=== PATIENT | female | born 1940 | race Caucasian/White ===

== ENCOUNTER 2016-03-25 09:40 | Inpatient (IN) | payer MEDICARE, OTHER ==
[~2016-03-25] VITALS: Ht 162.6 cm; Wt 65.8 kg
[~2016-03-25 09:40] MED LIST: BAYER CHEWABLE81 MG; EFFIENT10 MG PO; FISH OIL 1,0001 CA1 PO; IMDUR30 MG PO; JANUMET 50-5001 TAB PO; LIPITOR40 MG PO; NEURONTIN 300300 MG PO; NITROSTAT0.4 MG SL; PLAVIX75 MG PO; PRINIVIL20 MG PO; SYNTHROID25 MCG PO; TOPROL XL25 MG PO; ULTRAM50 MG PO
[2016-03-25 11:36] LABS: BASOPHILS 0.2 % (0.0-2.0); EOSINOPHILS 3.1 % (0-7); HEMATOCRIT 37.5 % (36.0-48.0); HEMOGLOBIN 12.1 g/dL (12-16); IMMATURE GRANULOCYTES 0.6 % (0-5); MCH 29.7 pg (26.0-34.0); MCHC 32.3 g/dL (31.0-37.0); MCV 91.9 fL (80.0-100.0); MEAN PLATELET VOLUME 9.5 fL (7.4-10.4); MONOCYTES 4.1 % (2-11); PLATELET COUNT 199 10x3/uL (130-400); RBC 4.08 10x6/uL (4.00-5.40); RDW 13.9 % (11.5-14.5); WBC 10.6 10x3/uL (4.8-10.8)
[2016-03-25 11:53] LABS: ALBUMIN 3.6 g/dL (3.4-5.0); ANION GAP 11.1 mmol/L (8-16); BILIRUBIN - TOTAL 0.3 mg/dL (0.2-1.3); CARBON DIOXIDE 29.6 mmol/L (21.0-32.0); CREATININE - SERUM 1.3 mg/dL (0.6-1.3); POTASSIUM - SERUM 4.7 mmol/L (3.5-5.1); PROTEIN - SERUM 6.3 g/dL (6.4-8.2)
[2016-03-25 11:56] LABS: INR 0.89 (0.85-1.17); PROTIME 11.9 SECONDS (11.6-15.0)
[2016-03-25 12:19] LABS: APPEARANCE SLT CLOUDY (CLEAR); BILIRUBIN NEGATIVE (NEGATIVE); COLOR YELLOW (YELLOW); GLUCOSE 250 mg/dL (NEGATIVE); KETONE NEGATIVE (NEGATIVE); LEUKOCYTE ESTERASE TRACE (NEGATIVE); NITRITE POSITIVE (NEGATIVE); PROTEIN NEGATIVE (NEGATIVE); SPECIFIC GRAVITY 1.015 (1.005-1.020); UROBILINOGEN NORMAL (NORMAL)
[2016-03-25 12:20] LABS: BACTERIA MANY /hpf (NONE SEEN); EPITHELIAL CELLS 0-5 /hpf (0-5); MUCUS <1+ /lpf (NONE SEEN); WHITE CELLS - URINE 0-5 /hpf (0-5)
--- NOTE | 2016-03-25 14:22 | NUR ---
1400- RECEIVED PT FROM ER VIA BED BY KARINA DURAN. STATED PT JUST HAD ZOFRAN IN ER. YUNG CATHETER SEEN WITH YELLOW URINE. ON ROOM AIR. IV CATHETER SEEN TO RIGHT FOREARM THAT IS SALINE LOCKED AND PATENT. IV FLUIDS STARTED ORDERED (NS RUNNING AT 75CC).
[2016-03-25] MEDS ORDERED: VITAMIN D31000 UNI2 PO (14:34)
[2016-03-25] MEDS ORDERED: FISH OIL 1,0001 CA1 PO (14:34)
[2016-03-25 14:37] VITALS: BP 112/51
--- NOTE | 2016-03-25 15:10 | NUR ---
PTS QUICKSTART DONE, ADMISSION ASSESSMENT COMPLETED, AND ASSESSMENT HISTORY COMPLETED. PTS HOME MEDICAION LIST UPDATED WITH PHARMACY INFORMATION PER PT STATEMENTS. NO NEED AT CURRENT TIME WILL AWAIT NEW ORDERS.
--- NOTE | 2016-03-25 18:04 | NUR ---
SURGERY JUST CALLED TO INFORM ME THAT PT WILL BE GOING IN FOR SURGERY AT AROUND [phone] IN THE AM AND TO PASS THIS ON IN REPORT TO ASSESSMENT CLINICIAN NURSE. INFORMED SURGERY THAT PT STATED THAT THE LAST TIME SHE HAD SURGERY SHE VOMITED ALOT AFTERWARDS. FAMILY MEMBERS ARE CURRENTLY AT BEDSIDE. PT IS SITTING UP IN BED RESTING. NO NEED AT CURRENT TIME. WILL CONTINUE TO MONITOR.
[2016-03-25 19:00] VITALS: BP 121/66
[2016-03-26] VITALS (10 sets, daily range): BP systolic 114–163; BP diastolic 57–82
--- NOTE | 2016-03-26 04:06 | NUR ---
ASSESSED AT THE BEGINNING OF THE SHIFT. PT IS ALERT AND ORIENTED, ABLE TO VERBALIZE NEEDS. SHE IS HAVING ALOT OF PAIN IN A FRACTURED HIP AND WE HAVE BEEN GIVING HER PAIN AND NAUSEA MEDS ORDERED. AT MIDNIGHT SHE BECAME NPO AND WE SATYA HAVE HER READY FOR SURGERY IN EARLY AM. THE BED IS LOW, RAILS UP X'S 2 WITH THE CALL LIGHT AT HAND.
[2016-03-26 06:04] LABS: BASOPHILS 0.1 % (0.0-2.0); EOSINOPHILS 0.2 % (0-7); HEMATOCRIT 35.9 % (36.0-48.0); HEMOGLOBIN 11.5 g/dL (12-16); IMMATURE GRANULOCYTES 0.6 % (0-5); MCH 29.3 pg (26.0-34.0); MCV 91.6 fL (80.0-100.0); MEAN PLATELET VOLUME 9.7 fL (7.4-10.4); MONOCYTES 4.8 % (2-11); NEUTROPHILS 76.3 % (40-80); PLATELET COUNT 190 10x3/uL (130-400); RBC 3.92 10x6/uL (4.00-5.40); RDW 14.1 % (11.5-14.5); WBC 8.3 10x3/uL (4.8-10.8)
[2016-03-26 06:27] LABS: ANION GAP 10.4 mmol/L (8-16); CALCIUM 8.7 mg/dL (8.5-10.1); CARBON DIOXIDE 29.9 mmol/L (21.0-32.0); CREATININE - SERUM 1.2 mg/dL (0.6-1.3); POTASSIUM - SERUM 4.3 mmol/L (3.5-5.1)
--- NOTE | 2016-03-26 07:36 | NUR ---
PT PREOPED AND TAKEN BACK TO HOLDING AREA. DR. GÓMEZ DISCUSSING PROCEDURE WITH FAMILY OUTSIDE OF ROOM.
--- NOTE | 2016-03-26 09:36 | NUR ---
PT REC'D BACK TO ROOM FROM SURGERY. AAOX4. RATING CURRENT PAIN IN R KNEE 09/29. O2 SAT W/O 2L O2 ON 84, BUT CORRECT TO 98 WITH O2 ON. EXPLAINED TO PT THAT WHEN O2 IS THAT LOW WE CANNOT GIVE PAIN MEDICATION. WILL REASSESS. ICE TO R HIP. SCD'S ON. BED LOW, CALL LIGHT IN REACH, VSS AT THIS TIME. WILL CONTINUE TO MONITOR CLOSELY.
--- NOTE | 2016-03-26 12:24 | NUR ---
PATIENT ALERT IN BED WITH FAMILY PRESENT. NO SIGNS OF DISTRESS NOTED. SIDE RAILS UP X 2. BED IN LOW POSITION. CALL LIGHT IN REACH.
--- NOTE | 2016-03-26 14:24 | NUR ---
PT RESTING IN BED WITH EYES CLOSED. NO SIGNS OF DISTRESS. RESP EVEN AND UNLABORED. DRESSING TO R HIP CDI. ICE TO AFFECTED AREA. BED LOW, CALL LIGHT IN REACH, WILL CPOC.
[2016-03-27] VITALS: BP 118/61
[2016-03-27 04:00] VITALS: BP 117/64
[2016-03-27 05:08] LABS: BASOPHILS 0.1 % (0.0-2.0); HEMATOCRIT 32.8 % (36.0-48.0); HEMOGLOBIN 10.3 g/dL (12-16); IMMATURE GRANULOCYTES 0.3 % (0-5); LYMPHOCYTES 21.9 % (15-50); MCH 29.4 pg (26.0-34.0); MCHC 31.4 g/dL (31.0-37.0); MCV 93.7 fL (80.0-100.0); MEAN PLATELET VOLUME 9.5 fL (7.4-10.4); NEUTROPHILS 68.7 % (40-80); PLATELET COUNT 142 10x3/uL (130-400); RDW 14.6 % (11.5-14.5); WBC 6.9 10x3/uL (4.8-10.8)
[2016-03-27 05:29] LABS: ANION GAP 12.5 mmol/L (8-16); CALCIUM 8.2 mg/dL (8.5-10.1); CARBON DIOXIDE 26.7 mmol/L (21.0-32.0); CREATININE - SERUM 1.2 mg/dL (0.6-1.3); POTASSIUM - SERUM 4.2 mmol/L (3.5-5.1)
--- NOTE | 2016-03-27 07:00 | NUR ---
PT REC'D FROM KARINA HARDIN. RESTING IN BED WITH FAMILY IN ROOM. RATING CURRENT PAIN IN R HIP 04/01. DRESSING TO R HIP CDI. ICE APPLIED TO R HIP. YUNG CATHETER DRAINING CLEAR YELLOW URINE TO GRAVITY. BED LOW, CALL LIGHT IN REACH, DENIES NEEDS. CPOC.
--- NOTE | 2016-03-27 08:02 | NUR ---
PATIENT IN [place] POSITION RESTING QUIETLY. NO SIGNS OF DISTRESS NOTED. AVI NURSE AID AT BEDSIDE. SIDE RAILS UP X2. BED IN LOW POSITION. CALL LIGHT IN REACH.
--- NOTE | 2016-03-27 08:30 | NUR ---
MORNING MEDS PASSED AT THIS TIME. FAMILY AT BEDSIDE. NO COMPLAINTS. BED LOW, CALL LIGHT IN REACH, DENIES NEEDS.
[2016-03-27 09:00] VITALS: BP 106/53
--- NOTE | 2016-03-27 11:30 | NUR ---
FSBS 157. 2 UNITS OF INSULIN ADMINISTERED PER SS. BED LOW, CALL LIGHT IN REACH, DENIES NEEDS.
[2016-03-27 12:45] VITALS: BP 102/58
[2016-03-27 16:28] VITALS: BP 99/45
--- NOTE | 2016-03-27 16:30 | NUR ---
FSBS 171. 2 UNITS OF INSULIN ADMINISTERED PER SS. BED LOW, CALL LIGHT IN REACH, WILL CPOC.
[2016-03-27 19:00] VITALS: BP 130/73
--- NOTE | 2016-03-27 19:20 | NUR ---
REPORT GIVEN TO KARINA KHAN.
[2016-03-28] VITALS: BP 103/46
--- NOTE | 2016-03-28 02:30 | NUR ---
PT. IN BED WITH HOB UP FOR COMFORT WATCHING TV AND TRYING TO GO TO SLEEP. PT. HAS NO VOICED NEEDS AT THIS TIME AND HAS HER CALL LIGHT WITHIN REACH.
[2016-03-28 04:00] VITALS: BP 94/48
--- NOTE | 2016-03-28 05:33 | NUR ---
PT. IN BED WITH HOB UP FOR COMFORT WITH EYES CLOSED AND RESP. EVEN. IV INFUSING INTO RT. FOREARM OF NS @ 75CC/HR. CALL LIGHT WITHIN REACH.
[2016-03-28 05:44] LABS: BASOPHILS 0.5 % (0.0-2.0); EOSINOPHILS 6.4 % (0-7); IMMATURE GRANULOCYTES 0.6 % (0-5); LYMPHOCYTES 27.6 % (15-50); MCH 29.4 pg (26.0-34.0); MCV 91.8 fL (80.0-100.0); MEAN PLATELET VOLUME 9.6 fL (7.4-10.4); MONOCYTES 7.6 % (2-11); NEUTROPHILS 57.3 % (40-80); PLATELET COUNT 130 10x3/uL (130-400); RDW 14.3 % (11.5-14.5); WBC 6.4 10x3/uL (4.8-10.8)
[2016-03-28 05:53] LABS: HEMATOCRIT 25.6 % (36.0-48.0); HEMOGLOBIN 8.2 g/dL (12-16); RBC 2.79 10x6/uL (4.00-5.40)
[2016-03-28 05:56] LABS: ANION GAP 10.7 mmol/L (8-16); CALCIUM 7.9 mg/dL (8.5-10.1); CARBON DIOXIDE 25.2 mmol/L (21.0-32.0); CREATININE - SERUM 1.1 mg/dL (0.6-1.3); POTASSIUM - SERUM 3.9 mmol/L (3.5-5.1)
[2016-03-28 08:59] VITALS: BP 143/68
--- NOTE | 2016-03-28 09:00 | NUR ---
REPORT RECIEVED ASSUMED CARE. PATIENT IN BED WITH IV INTACT. CALL LIGHT WITHIN REACH.
--- NOTE | 2016-03-28 10:16 | NUR ---
Rehab Prescreening Consult recieved and the chart has been reviewed. She is a good rehab candidate. She will be accepted on POD#3 is she and the physician feel she is medically stable for discharge to rehab. Anamika Wills RN Clinical Liaison, Rehab
--- NOTE | 2016-03-28 11:00 | NUR ---
PATIENT SITTING UP IN CHAIR WITH IV INTACT. FAMILY AT BEDSIDE. CALL LIGHT WITHIN REACH.
[2016-03-28 12:32] VITALS: BP 130/57
[2016-03-28 12:50] VITALS: Ht 162.6 cm; Wt 65.8 kg
[2016-03-28 16:08] VITALS: BP 113/47
--- NOTE | 2016-03-28 16:17 | NUR ---
Patient Name: YUDY LAWRENCE Admission Status: ER Accout number: [id number] Admission Date: 03-25-2016 : 1941 Admission Diagnosis: Attending: SHASHANK Current LOS: 3 Anticipated DC Date: 03-29-2016 Planned Disposition: Inpatient Rehab Primary Insurance: MEDICARE A & B Discharge Planning Comments: CM MET WITH PATIENT REGARDING D/C NEEDS AND PLANS. PATIENT STATED SHE LIVES ALONE WITH HER DOG (CARRIE). PATIENT HAS NO STEPS OR STAIRS AT HER HOME. PATIENT STATED SHE IS INDEPENDENT WITH HER CARE AND HAS NO DME AT HOME. PATIENTS PCP IS DR. PARKER AND PHARMACY IS [facility] ON [address]. PATIENT WILL GO TO IP REHAB AT DISCHARGE. CM WILL CONTINUE TO FOLLOW PATIENT WITH D/C NEEDS AND PLANS. PCP DR. KEITH KEEN [facility] [address]---[phone] RONALDO JILLIAN- [phone] Debeader: [address] Is the patient Alert and Oriented? Yes 0 * How many steps to enter\exit or inside your home? 0 0 * PCP DR. PARKER 0 * Pharmacy [facility] ([place]) 0 * Preadmission Environment Home Alone 0 * ADLs Independent 0 * Equipment None 0 * List name and contact numbers for known caregivers / representatives who currently or will assist patient after discharge: RONALDO COLEMAN (DAUGHTER) [phone] 0 * Community resources currently utilized None 0 * Additional services required to return to the preadmission environment? Yes 0 * Can the patient safely return to the preadmission environment? Yes 0 * Has this patient been hospitalized within the prior 30 days at any hospital? No 0 Grand Total: 0
--- NOTE | 2016-03-28 18:50 | NUR ---
PATIENT IN BED WITH NO COMPLAINTS. IV INTACT. YUNG INTACT. DRESSING TO HIP CLEAN AND DRY. CALL LIGHT WITHIN REACH.
[2016-03-28 19:00] VITALS: BP 129/56
--- NOTE | 2016-03-29 03:48 | NUR ---
PT IN BED WITH NO DISTRESS NOTED. RESPIRATIONS WITH EASE AND UNLABORED. SIDE RAILS ARE UP X 2. BED IS IN LOW POSITION. CALL LIGHT IS WITHIN REACH.
[2016-03-29 04:00] VITALS: BP 125/56
[2016-03-29 04:59] LABS: BASOPHILS 0.3 % (0.0-2.0); HEMATOCRIT 26.1 % (36.0-48.0); HEMOGLOBIN 8.4 g/dL (12-16); IMMATURE GRANULOCYTES 0.7 % (0-5); LYMPHOCYTES 20.3 % (15-50); MCH 29.3 pg (26.0-34.0); MCHC 32.2 g/dL (31.0-37.0); MCV 90.9 fL (80.0-100.0); MEAN PLATELET VOLUME 9.7 fL (7.4-10.4); MONOCYTES 7.2 % (2-11); NEUTROPHILS 64.5 % (40-80); PLATELET COUNT 134 10x3/uL (130-400); RBC 2.87 10x6/uL (4.00-5.40); WBC 6.9 10x3/uL (4.8-10.8)
[2016-03-29 05:16] LABS: ANION GAP 10.5 mmol/L (8-16); CALCIUM 8.1 mg/dL (8.5-10.1); CARBON DIOXIDE 25.5 mmol/L (21.0-32.0); CREATININE - SERUM 1.1 mg/dL (0.6-1.3)
--- NOTE | 2016-03-29 07:00 | NUR ---
REPORT RECEIVED FROM ELECTRICAL TIMING DEVICE CALIBRATOR NURSE. CALL LIGHT IN REACH.
--- NOTE | 2016-03-29 07:07 | OP ---
PATIENT NAME: YUDY LAWRENCE MEDICAL RECORD: [id number] :41 LOCATION:[id number] ADMISSION DATE:03/25/16 SURGEON: STEPHANE COTO MD DATE OF OPERATION: 03/26/2016 PREOPERATIVE DIAGNOSIS: Right intertrochanteric hip fracture. POSTOPERATIVE DIAGNOSIS: Right intertrochanteric hip fracture. PROCEDURE PERFORMED: Right hip repair using Affixus nail 11 x 180. SURGEON: Shailesh Coto MD. ANESTHESIA: General. CONDITION: She tolerated the procedure well and was transferred to the recovery room in stable condition. INDICATIONS: This is a pleasant 76-year-old female that had a fall. She had an intertrochanteric hip fracture. This was displaced. We discussed her options. She wanted to go ahead and proceed with repair. We discussed risks, benefits, and alternatives. She understood and wished to proceed. OPERATIVE REPORT: The patient was taken to the operating room, placed in a supine position. General anesthesia was obtained. She was then transferred to the fracture table. Her left leg was placed down and out of the way position with no traction. The right leg was pulled into forward flexion, extension, and internal rotation and then a boot with minimal traction. X-ray was brought in to verify the position of the fracture. Once this was verified to be acceptable, I then proceeded to have her prepped and draped. She received Ancef per protocol. Procedure was begun by making a small incision proximally. This was taken down. The IT band was split. The greater trochanter was identified. The trocar was placed into the trochanter. Following which, a guidewire was placed down the femur. I then over reamed the proximal portion and then placed an 11 x 180 short Affixus nail. I then placed 105 degree lag screw. This was checked on AP and lateral to get it center-center position. She was locked into place with a 36-mm distal screw. These views were taken to verify its reduction and position. Once this was accomplished, she was then irrigated, then closed with #1 Vicryl followed by 2-0 Vicryl, then susie. She tolerated this well, was awakened and transferred to recovery room in stable condition, having tolerated procedure well. TRANSINT:[id number] Voice Confirmation ID: [id number] DOCUMENT ID: [id number] STEPHANE COTO MD at 0707 CC: [id number] DICTATION DATE: 03/27/16 1441 ENGINEERING DOCUMENT CONTROL CLERK: 03/27/16 1538 ADM IN [place] [id number] [place] [id number]
[2016-03-29 08:15] VITALS: BP 132/71
--- NOTE | 2016-03-29 08:38 | NUR ---
ASSESSMENT COMPLETED. CHOKING ON RUSSELL. RAISED HOB UP. LUNGS CLEAR AND O2 SAT 95% ON ROOM AIR. AM MEDS ADMINISTERED. ICE PACK FILLED AND PLACED TO RIGHT HIP. SON IN ROOM. WANTS TO WAIT TO HAVE YUNG OUT FOR A FEW HOURS. CALL LIGHT IN REACH. WILL CONTINUE WITH PLAN OF CARE.
--- NOTE | 2016-03-29 09:00 | NUR ---
PATIENT IS RESTING QUIETLY WITH EYES CLOSED. FAMILY MEMBER IN CHAIR BESIDE BED, HE DENIES NEEDS AT THIS TIME. BED IN LOWEST POSITION, CALL LIGHT IN REACH. BED RAILS UP X'S 2.
[2016-03-29] MEDS ORDERED: LOVENOX40 MG/0.4 SC (10:32)
[2016-03-29] MEDS ORDERED: COLACE100 MG PO (10:33)
[2016-03-29] MEDS ORDERED: OXYCODONE HCL5 MG PO (10:33)
[2016-03-29] MEDS ORDERED: FLORAJEN3 CAPS460 MG PO (10:35)
[2016-03-29] MEDS ORDERED: HUMALOG 30100 UNITS/ SC (10:36)
[2016-03-29] MEDS ORDERED: JANUVIA50 MG PO (10:38)
[2016-03-29] MEDS ORDERED: GLUCOPHAGE500 MG PO (10:38)
--- NOTE | 2016-03-29 10:44 | NUR ---
SITTING IN CHAIR PER PT. WILL TAKE YUNG OUT WHEN PATIENT GETS BACK TO BED.
--- NOTE | 2016-03-29 10:45 | NUR ---
CM REASSESSMENT NOTE: PATIENT IS DISCHARGING TO IP REHAB TODAY. PATIENT NOTIFIED HER FAMILY.
--- NOTE | 2016-03-29 10:57 | NUR ---
REPORT CALLED TO KARINA HARTLEY, IN REHAB/
--- NOTE | 2016-03-29 12:21 | NUR ---
YUNG CATH DC'D WITH TIP INTACT.
[2016-03-29 12:30] VITALS: BP 133/65
--- NOTE | 2016-03-29 13:26 | NUR ---
DRSG TO RIGHT HIP CHANGED AND ASSISTED WITH CLOTHES GETTING ON. DC'D TO REHAB VIA WC.
--- NOTE | 2016-05-03 16:33 | DS ---
PATIENT:MIMI LAWRENCE :42 MEDICAL RECORD: [id number] DISCHARGE SUMMARY ADMISSION DATE: 03/25/16 DISCHARGE DATE: 03/29/16 DATE OF ADMISSION: 03/25/2016 DATE OF DISCHARGED: 03/29/2016 ADMITTING DIAGNOSIS: Right intertrochanteric hip fracture. DISCHARGE DIAGNOSIS: Right intertrochanteric hip fracture. PROCEDURE PERFORMED: Right hip nailing. ADMITTING PHYSICIAN: Shailesh Gómez MD HISTORY OF PRESENT ILLNESS: This is a pleasant 76-year-old that presents with a right intertrochanteric hip fracture that was taken to the operating room and underwent a nailing of this. She did well postoperatively. It was felt by the 7th that she could be discharged to the rehabilitation center to continue rehabilitation for the hip fracture. DISCHARGE DIAGNOSIS: 1. Right intertrochanteric hip fracture. 2. Postop acute blood loss anemia. PLAN: Progress weightbearing with a walker. Continue on anticoagulation therapy. Continue pain meds. See me back in my office in about 2 weeks. TRANSINT:[id number] Voice Confirmation ID: [id number] DOCUMENT ID: [id number] STEPHANE GÓMEZ MD at 1633 CC: [id number] DICTATION DATE: 04/26/16 1122 EVAPORATOR OPERATOR MOLASSES: 04/27/16 0038 DIS IN 03/29/16 [id number] [place] [address]
== END 2016-03-29 13:26 | DRG 481 ==
LOC: D.ER 09:40 → D.MS 13:00
PROVIDERS: Emergency Medicine; Family Medicine; ADMIT Orthopaedic Surgery Sports Medicine
PROC: 0QS636Z Reposition Right Upper Femur with Intramedullary Internal Fixation Device, Percutaneous Approach (ICD-10-PCS; principal; 2016-03-26 08:00)
DX: S72.141A Displaced intertrochanteric fracture of right femur, initial encounter for closed fracture (principal); D62 Acute posthemorrhagic anemia; N39.0 Urinary tract infection, site not specified; W17.89XA Other fall from one level to another, initial encounter; Y92.89 Other specified places as the place of occurrence of the external cause; I10 Essential (primary) hypertension; E11.9 Type 2 diabetes mellitus without complications; I25.10 Atherosclerotic heart disease of native coronary artery without angina pectoris

== ENCOUNTER 2016-03-29 10:13 | Inpatient (IN) | payer MEDICARE, OTHER ==
[~2016-03-29] VITALS: Ht 162.6 cm; Wt 65.8 kg
[~2016-03-29 10:13] MED LIST changes: +VITAMIN D31000 UNI2 PO
[2016-03-29] MEDS ORDERED: LOVENOX40 MG/0.4 SC (10:32)
[2016-03-29] MEDS ORDERED: COLACE100 MG PO (10:33)
[2016-03-29] MEDS ORDERED: OXYCODONE HCL5 MG PO (10:33)
[2016-03-29] MEDS ORDERED: FLORAJEN3 CAPS460 MG PO (10:35)
[2016-03-29] MEDS ORDERED: HUMALOG 30100 UNITS/ SC (10:36)
[2016-03-29] MEDS ORDERED: JANUVIA50 MG PO (10:38)
[2016-03-29] MEDS ORDERED: GLUCOPHAGE500 MG PO (10:38)
[2016-03-29 13:45] VITALS: BP 139/53
--- NOTE | 2016-03-29 14:28 | NUR ---
Pt. arrived to unit via wheelchair and her daughter accompanyied her as well as nursing staff from MED Surg UNIT. Pt. is alert and oriented x 4. Personal belongings brought with pt. Pt has setteled into room and call light is in reach. ICE water provided to pt. Daughter is staying with her for now. Pt. does say her right hip and knee hurts a little so ice bags will be provided.Will be monitoring pt. and assisting prn with adl's.
--- NOTE | 2016-03-29 18:18 | NUR ---
Pt. has rested in bed since being admitted. Monitoring her and assisting prn with adl's. She used the bedpan a couple hours ago. Call light is in reach. Ice bags supplied to pt for her pain in her right hip and right knee.
--- NOTE | 2016-03-29 20:00 | NUR ---
PT IS RESTING IN BED WITH EYES CLOSED. AWOKE EASILY TO VERBAL STIMULI. VSS. DRESSING IS INTACT TO RIGHT HIP. NO DRAINAGE NOTED. PT HAS A RESERVE LEFT ARM DUE TO A HX OF A MASTECTOMY. ASSISTED UP TO THE BSC WITH MAX ASSIST. VOIDED WITHOUT DIFFICULTY. MEDIUM BM NOTED. SR'S ARE UP X 3 IN BED. CALL LIGHT AND BEDSIDE TABLE ARE WITHIN EASY REACH.
[2016-03-29 20:10] VITALS: BP 129/79
--- NOTE | 2016-03-29 22:31 | NUR ---
PT IS RESTING QUIETLY IN BED WITH EYES CLOSED. RESPS ARE EVEN AND UNLABORED. NO ACUTE DISTRESS NOTED.
--- NOTE | 2016-03-30 02:03 | NUR ---
PT RESTING QUIETLY, RESPIRATIONS REGULAR AND UNLABORED, NO S/S OF ACUTE DISTRESS.
[2016-03-30 06:06] LABS: BASOPHILS 0.2 % (0.0-2.0); EOSINOPHILS 5.7 % (0-7); HEMATOCRIT 26.2 % (36.0-48.0); HEMOGLOBIN 8.6 g/dL (12-16); IMMATURE GRANULOCYTES 0.8 % (0-5); LYMPHOCYTES 19.6 % (15-50); MCH 29.9 pg (26.0-34.0); MCHC 32.8 g/dL (31.0-37.0); MEAN PLATELET VOLUME 9.6 fL (7.4-10.4); MONOCYTES 10.3 % (2-11); NEUTROPHILS 63.4 % (40-80); RBC 2.88 10x6/uL (4.00-5.40); RDW 14.4 % (11.5-14.5); WBC 6.1 10x3/uL (4.8-10.8)
[2016-03-30 06:08] LABS: PLATELET COUNT 175 10x3/uL (130-400)
[2016-03-30 06:21] LABS: ANION GAP 12.5 mmol/L (8-16); CALCIUM 8.6 mg/dL (8.5-10.1); CARBON DIOXIDE 25.2 mmol/L (21.0-32.0); CREATININE - SERUM 0.9 mg/dL (0.6-1.3); POTASSIUM - SERUM 3.7 mmol/L (3.5-5.1)
--- NOTE | 2016-03-30 06:23 | NUR ---
PT RESTING IN BED READING A BOOK. NO NEEDS VOICED. ANXIOUS TO START THERAPY TODAY.
--- NOTE | 2016-03-30 08:00 | NUR ---
SITTING UP IN ROOM ON BSC.DENIES NEEDS.CL IN REACH.
[2016-03-30 10:19] VITALS: Ht 162.6 cm; Wt 65.8 kg
--- NOTE | 2016-03-30 15:21 | NUR ---
CARE TEAM MEETING: PATIENT NEW TO UNIT AND WILL BE RA AT NEXT MEETING. PCP IS DR. PARKER AND WILL NEED FOLLOW UP WITH DR. GÓMEZ. PATIENT USES [facility] ON [facility]. WILL CONTINUE TO FOLLOW WITH PATIENT UNTIL DISCHARGED
--- NOTE | 2016-03-30 18:01 | NUR ---
PT RESTING IN BED WITH EYES OPEN CALL LIGHT IN REACH NO PROBLEMS WILL MONITER
[2016-03-30 20:00] VITALS: BP 129/62
--- NOTE | 2016-03-30 23:09 | NUR ---
PT. IN BED WITH HOB UP FOR COMFORT AND EASILY AWAKENS I ENTER THE ROOM. PT. C/O BACK PAIN AT A #7 AND REQUESTING PAIN MEDICATION. INFORMATION WILL BE REPORTED TO PT'S NURSE IMMEDIATELY FOR ADMINISTRATION. CALL LIGHT WITHIN HER REACH FOR ANY OTHER NEEDS.
--- NOTE | 2016-03-31 00:59 | NUR ---
RESTING IN BED WITH EYES CLOSED.
--- NOTE | 2016-03-31 03:00 | NUR ---
PT ASSISTED UP TO THE COMMODE WITH MOD ASSIST FOR TRANSFERS, AND SBA FOR TOILETING. NO BM NOTED.
--- NOTE | 2016-03-31 05:02 | NUR ---
PT IS RESTING QUIETLY IN BED WITH EYES CLOSED. NO ACUTE DISTRESS NOTED.
--- NOTE | 2016-03-31 07:30 | NUR ---
resting quietly in bed. call light in reach
[2016-03-31 08:11] VITALS: BP 128/78
--- NOTE | 2016-03-31 14:02 | NUR ---
C/O PAIN TO RT HIP. PAIN MEDS GIVEN ORDERED.
--- NOTE | 2016-03-31 18:49 | NUR ---
WATCHING TV AND TALKING ON WHONE FROM BED. CALL LIGHT IN REACH. USES BSC.
[2016-03-31 19:53] VITALS: BP 131/82
--- NOTE | 2016-03-31 20:00 | NUR ---
PT IS RESTING IN BED WATCHING TV. ALERT AND ORIENTED X 4. VOICED COMPLAINT OF RIGHT HIP PAIN LEVEL OF 7. MEDICATED PER MAR. DRESSING TO RIGHT HIP IS CDI. NO DRAINAGE NOTED. LEFT ARM IS RESERVED FOR HX OF A MASTECTOMY. SR'S ARE UP X 2 IN BED. CALL LIGHT AND BEDSIDE TABLE ARE WITHIN EASY REACH.
--- NOTE | 2016-03-31 22:19 | NUR ---
PT. IN BED WITH HOB UP FOR COMFORT LYING ON HER RIGHT SIDE WITH EYES CLOSED AND RESP. EVEN. CALL LIGHT WITHIN REACH.
--- NOTE | 2016-04-01 01:50 | NUR ---
PT RESTING IN BED WITH EYES CLOSED.
--- NOTE | 2016-04-01 04:28 | NUR ---
PT ASSISTED UP TO THE BATHROOM WITH MIN ASSIST FOR TRANSFERS. MOD ASSIST FOR WC LOCOMOTION, AND SBA FOR TOILETING. NO FURTHER NEEDS VOICED.
--- NOTE | 2016-04-01 06:05 | NUR ---
PT IS RESTING IN BED WITH EYES OPEN. ASSISTED TO THE BATHROOM. NO FURTHER NEEDS VOICED.
[2016-04-01 06:44] LABS: BASOPHILS 0.4 % (0.0-2.0); EOSINOPHILS 8.5 % (0-7); HEMATOCRIT 27.6 % (36.0-48.0); HEMOGLOBIN 8.8 g/dL (12-16); IMMATURE GRANULOCYTES 0.9 % (0-5); LYMPHOCYTES 24.3 % (15-50); MCH 29.3 pg (26.0-34.0); MCHC 31.9 g/dL (31.0-37.0); MEAN PLATELET VOLUME 9.5 fL (7.4-10.4); MONOCYTES 10.2 % (2-11); NEUTROPHILS 55.7 % (40-80); RDW 14.4 % (11.5-14.5); WBC 5.7 10x3/uL (4.8-10.8)
[2016-04-01 06:46] LABS: ANION GAP 10.6 mmol/L (8-16); CALCIUM 8.8 mg/dL (8.5-10.1); CARBON DIOXIDE 28.1 mmol/L (21.0-32.0); CREATININE - SERUM 0.8 mg/dL (0.6-1.3); PLATELET COUNT 251 10x3/uL (130-400); POTASSIUM - SERUM 3.7 mmol/L (3.5-5.1)
--- NOTE | 2016-04-01 07:30 | NUR ---
PATIENT RESTING QUIETLY IN BED. CALL LIGHT WITHIN REACH.
--- NOTE | 2016-04-01 12:00 | NUR ---
PATIENT EATING LUNCH IN ROOM. CALL LIGHT WITHIN REACH.
--- NOTE | 2016-04-01 14:26 | NUR ---
Nutrition Follow Up: Chart reviewed. Pt is eating 75% meal avg on a Diabetic diet. Wt stable. +BM 04/01/16. Labs noted - Glucose continues elevated. Meds noted. Rec continue current diet. RD following.
--- NOTE | 2016-04-01 15:30 | NUR ---
PATIENT LAYING IN BED VISITING WITH FAMILY. HOB ELEVATED AT 30 DEGREES. CALL LIGHT WITHIN REACH.
[2016-04-01 15:33] VITALS: BP 134/72
--- NOTE | 2016-04-01 19:47 | NUR ---
PT IN BED TALKING ON PHONE. NO CONCERNS MADE KNOWN. CALL LIGHT IN REACH. WILL CONTINUE TO OBSERVE.
--- NOTE | 2016-04-01 22:58 | NUR ---
PT IN BED WITH EYES OPEN WATCHING TV. ASSISTED TO BATHROOM. NO OTHER NEEDS OR CONCERNS MADE KNOWN AT THIS TIME. WATER AND CALL LIGHT IN REACH. WILL CONTINUE TO OBSERVE.
--- NOTE | 2016-04-02 01:06 | NUR ---
PT IN BED WITH EYES CLOSED AND CHEST RISING. RESPIRATIONS EVEN AND UNLABORE. EASILY AROUSED UPON ENTRY. NO CONCERNS MADE KNOWN AT THIS TIME. WATER AND CALL LIGHT IN REACH. WILL CONTINUE TO OBSERVE.
[2016-04-02 01:26] VITALS: BP 152/62
--- NOTE | 2016-04-02 03:45 | NUR ---
PT IN BED WITH EYES CLOSED AND CHEST RISING. RESPIRATIONS EVEN AND UNLABORED. NO SIGNS OR PAIN OR DISCOMFORT NOTED. WATER AND CALL LIGHT IN REACH. WILL CONTINUE TO OBSERVE.
--- NOTE | 2016-04-02 07:00 | NUR ---
Pt. was received at the beginning of this shift in bed awake and oriented x 3. Vital signs: Temp. 97.6, pulse 83, resp. 14, b/p 135/74, 02 sat 98%. Pt. denied any pain or discomfort. No signs of distress. Will be monitoring her and assisting prn with adl's.
[2016-04-02 12:53] VITALS: BP 135/74
--- NOTE | 2016-04-02 17:55 | NUR ---
Pt. has had an uneventful day. She went to therapy this afternoon and requested pain medication around 1345 and was given a Hydrocodone 5mg at that time. She opted out taking a shower today because she became "real tired." She said she may take one tonight or tomorrow. Resting in bed and watching tv at this time.
[2016-04-02 19:35] VITALS: BP 138/62
--- NOTE | 2016-04-02 19:40 | NUR ---
PT RESTING IN BED WATCHING TV. PT DENIES NEEDS AT THIS TIME. BED LOW. CL IN REACH.
--- NOTE | 2016-04-02 20:15 | NUR ---
PT ASSISTED TO BR. PT WAS A STANDBY ASSIST TO WHEELCHAIR. PT BACK IN BED RESTING AND DENIES FURTHUR NEEDS AT THIS TIME. BED LOW. CL IN REACH.
--- NOTE | 2016-04-02 22:54 | NUR ---
PT RESTING, EYES CLOSED. BED LOW. CLIN REACH. WCTM.
--- NOTE | 2016-04-03 01:18 | NUR ---
PT RESTING, EYES CLOSED. BED LOW. CLIN REACH. WCTM.
--- NOTE | 2016-04-03 03:00 | NUR ---
PT ASSISTED TO BR. PT BACK IN BED RESTING, DENIES FURTHUR NEEDS. WCTM. BED LOW. CL IN REACH.
--- NOTE | 2016-04-03 06:45 | NUR ---
PT AWAKE WATCHING TV. AM MEDS TAKEN WITHOUT DIFFICULTY. PT DENIES FURTHU NEEDS AT THIS TIME. BED LOW. CL IN REACH.
--- NOTE | 2016-04-03 08:08 | NUR ---
PATIENT AWAKE, ALERT/ORIENT X4. CALL LIGHT WITHIN REACH. VOICES NO NEEDS
--- NOTE | 2016-04-03 09:29 | NUR ---
PATIENT HAS SET UP HELP WITH SHOWER. ABLE TO WASH SELF. HAS A LONG SPONGE TO WASH BACK. NEEDED SOME HELP DRYING BACK AND FEET.
--- NOTE | 2016-04-03 10:56 | NUR ---
DRESSING CHANGED TO RIGHT HIP. SURGICAL CLIPS INTACT. NO DRAINAGE. NO REDNESS OR SWELLING.
--- NOTE | 2016-04-03 11:37 | NUR ---
GLUCOSE LEVEL 111. NO SLIDING SCALE INSULIN GIVEN
--- NOTE | 2016-04-03 13:57 | NUR ---
PRN PAIN MEDICATION GIVEN FOR RIGHT HIP PAIN. PATIENT HAS BEEN SITTING UP IN WHEELCHAIR. HELPED INTO BED WITH STANDBY ASST.
--- NOTE | 2016-04-03 15:55 | NUR ---
PATIENTS FAMILY IN ROOM VISITING. PATIENT VOICES NO NEEDS. DENIES ANY PAIN/DISC AT THIS TIME
--- NOTE | 2016-04-03 17:00 | NUR ---
SITTING UP IN BED.DENIES NEEDS.
[2016-04-03 19:20] VITALS: BP 136/57
--- NOTE | 2016-04-03 19:32 | NUR ---
PT IS RESTING IN BED WITH EYES CLOSED. AWOKE EASILY TO VERBAL STIMULI. ALERT AND ORIENTED X 4. DENIES ACUTE PAIN OR DISCOMFORT AT THIS TIME. DRESSING IS INTACT TO RIGHT HIP. NO DRAINAGE NOTED. VSS. LEFT ARM RESERVED FOR HX OF A MASTECTOMY. SR'S ARE UP X 2 IN BED. CALL LIGHT AND BEDSIDE TABLE ARE WITHIN EASY REACH.
--- NOTE | 2016-04-03 19:58 | NUR ---
PT. IN BED WITH HOB UP FOR COMFORT WITH EYES CLOSED AND RESP. EVEN. CALL LIGHT WITHIN REACH.
--- NOTE | 2016-04-03 22:43 | NUR ---
PT ASSISTED TO THE BATHROOM WITH SBA WITH RW. VOIDED WITHOUT DIFFICULTY. NO NEEDS VOICED.
--- NOTE | 2016-04-04 00:10 | NUR ---
RESTING IN BED WITH EYES CLOSED.
[2016-04-04 06:20] LABS: BASOPHILS 0.2 % (0.0-2.0); EOSINOPHILS 7.6 % (0-7); HEMATOCRIT 30.2 % (36.0-48.0); HEMOGLOBIN 9.3 g/dL (12-16); IMMATURE GRANULOCYTES 0.7 % (0-5); LYMPHOCYTES 29.3 % (15-50); MCH 28.7 pg (26.0-34.0); MCHC 30.8 g/dL (31.0-37.0); MCV 93.2 fL (80.0-100.0); MEAN PLATELET VOLUME 9.3 fL (7.4-10.4); MONOCYTES 11.7 % (2-11); NEUTROPHILS 50.5 % (40-80); RBC 3.24 10x6/uL (4.00-5.40); RDW 14.5 % (11.5-14.5); WBC 5.6 10x3/uL (4.8-10.8)
[2016-04-04 06:26] LABS: PLATELET COUNT 352 10x3/uL (130-400)
[2016-04-04 06:45] LABS: ANION GAP 9.7 mmol/L (8-16); CARBON DIOXIDE 30.5 mmol/L (21.0-32.0); CREATININE - SERUM 0.9 mg/dL (0.6-1.3); POTASSIUM - SERUM 4.2 mmol/L (3.5-5.1)
--- NOTE | 2016-04-04 09:58 | NUR ---
TOOK HER AM MEDS AND THEN THREW THEM BACK UP.
[2016-04-04 12:31] VITALS: BP 135/67
--- NOTE | 2016-04-04 13:38 | NUR ---
RESTING QUIETLY IN BED. PAIN MEDS EFFECTIVE IN PAIN CONTROL. CALL LIGHT IN REACH
--- NOTE | 2016-04-04 15:37 | NUR ---
MIN ASST TO BATHROOM WITH WALKER. PAIN CONTROLLED WITH CURRENT MEDS
--- NOTE | 2016-04-04 17:46 | NUR ---
SITTING UP IN BED BED FAUSTO DOYLE. USES WALKER FOR AMBULATION ASST.
[2016-04-04 19:41] VITALS: BP 121/66
--- NOTE | 2016-04-04 19:48 | NUR ---
PT. IN BED WITH HOB UP FOR COMFORT AND IS WATCHING TV. PT. REQUESTED ASSISTANCE TO THE BATHROOM TO URINATE. HELPED PT. WITH WALKER TO BATHROOM A CGA AND PT. DID VERY WELL WITH TRANSFER AND AMBULATION. INSTRUCTED PT. TO PULL THE CORD IN THE BATHROOM WHEN SHE WAS FINISHED. PT. STATED SHE WOULD.
--- NOTE | 2016-04-04 20:10 | NUR ---
RESUMED CARE OF PT, PT ASKING IF SHE NEEDS TO CALL FOR ASSIST TO RESTROOM. I REPLIED WITH YES, PT ALERT & ORIENTED, VITALS ARE STABLE, BED IS LOW, SRX2, CALL LIGHT IN REACH, WILL CONTINUE TO MONITOR
--- NOTE | 2016-04-04 22:52 | NUR ---
ASSISTED PT TO RESTROOM AND BACK TO BED, DENIES ANY OTHER NEEDS, CALL LIGHT IN REACH
--- NOTE | 2016-04-05 01:00 | NUR ---
RECEIVED REPORT FROM SARAH DE DIOS LPN
--- NOTE | 2016-04-05 02:15 | NUR ---
PT RESTING WITH EYES CLOSED, RESP QUIET, NO DISTRESS NOTED, LEFT UNDISTURBED AT THIS TIME
--- NOTE | 2016-04-05 04:22 | NUR ---
PT RESTING WITH EYES CLOSED, RESP QUIET, NO DISTRESS NOTED, LEFT UNDISTURBED AT THIS TIME
--- NOTE | 2016-04-05 06:16 | NUR ---
PT RESTING WITH EYES CLOSED, AROUSES TO SOFT VERBAL STIMULATION, ADM 0600 MED AND OBTAINED FSBS, SEE EMAR, PT DENIES NEEDS OR PAIN AT THIS TIME
--- NOTE | 2016-04-05 07:00 | NUR ---
SHIFT REPORT TO DAY SHIFT
--- NOTE | 2016-04-05 09:41 | NUR ---
DENIES INCREASED PAIN TO RT HIP. DSG INTACT. USES WALKER FOR AMBULATION ASST. MIN ASST NEEDED FOR SAFETY.
[2016-04-05 12:30] VITALS: BP 101/54
[2016-04-05 19:35] VITALS: BP 150/60
--- NOTE | 2016-04-05 20:00 | NUR ---
PT IS UP IN THE SHOWER AT THIS TIME.
--- NOTE | 2016-04-05 21:14 | NUR ---
PT RESTING IN BED WITH EYES OPEN. ALERT AND ORIENTED X 4. FINISHED WITH HER SHOWER. STATES SHE FEELS SOOOOOO MUCH BETTER NOW. NO ACUTE DISTRESS NOTED. TATIANNA ARE INTACT TO RIGHT HIP. INCISION LEFT OPEN TO AIR. NO DRAINAGE NOTED. SR'S ARE UP X 2 IN BED. CALL LIGHT AND BEDSIDE TABLE ARE WITHIN EASY REACH.
--- NOTE | 2016-04-05 21:53 | NUR ---
PT IS RESTING QUIETLY IN BED WITH EYES CLOSED. NO DISTRESS NOTED.
--- NOTE | 2016-04-05 22:04 | NUR ---
PT. IN BED WITH HOB AND FOB UP FOR COMFORT. PT'S EYE CLOSED AND RESP. ARE EVEN. CALL LIGHT WITHIN REACH.
--- NOTE | 2016-04-06 01:47 | NUR ---
PT IS RESTING IN BED WITH EYES CLOSED.
--- NOTE | 2016-04-06 04:33 | NUR ---
PT ASSISTED TO THE BATHROOM WITH SBA. NO DISTRESS NOTED.
[2016-04-06 05:58] LABS: BASOPHILS 0.4 % (0.0-2.0); EOSINOPHILS 6.7 % (0-7); HEMATOCRIT 33.4 % (36.0-48.0); HEMOGLOBIN 10.2 g/dL (12-16); IMMATURE GRANULOCYTES 0.6 % (0-5); LYMPHOCYTES 35.3 % (15-50); MCH 28.7 pg (26.0-34.0); MCHC 30.5 g/dL (31.0-37.0); MCV 94.1 fL (80.0-100.0); MEAN PLATELET VOLUME 9.4 fL (7.4-10.4); MONOCYTES 11.1 % (2-11); NEUTROPHILS 45.9 % (40-80); PLATELET COUNT 382 10x3/uL (130-400); RBC 3.55 10x6/uL (4.00-5.40); RDW 14.8 % (11.5-14.5); WBC 5.4 10x3/uL (4.8-10.8)
[2016-04-06 06:06] LABS: ANION GAP 12.7 mmol/L (8-16); CALCIUM 9.2 mg/dL (8.5-10.1); CARBON DIOXIDE 29.5 mmol/L (21.0-32.0); CREATININE - SERUM 0.8 mg/dL (0.6-1.3); POTASSIUM - SERUM 4.2 mmol/L (3.5-5.1)
--- NOTE | 2016-04-06 07:35 | NUR ---
RESTING QUIETLY IN BED. CALL LIGHT IN REACH
--- NOTE | 2016-04-06 09:22 | NUR ---
Nutrition Follow Up: Chart reviewed. Pt is eating 69% meal avg on a Diabetic diet. +BM 04/04/16. No new wt to assess. Labs noted - Glucose continues elevated. Meds noted including Januvia, Metformin, Humalog. Pt with fair po intake at this time. Rec continue current diet. RD following.
[2016-04-06 12:18] VITALS: BP 139/70
--- NOTE | 2016-04-06 16:14 | NUR ---
RESTING QUIETLY IN ROOM. CALL LIGHT IN REACH. PT CHILDREN VISITED TODAY
--- NOTE | 2016-04-06 16:59 | NUR ---
CARE TEAM MEETING: TENATIVE DISCHARGE DATE IS IS 04/08/16. WAITING ON XRAY RESULTS. PCP IS [facility] ON [facility]. PATIENT SON AND DAUGHTER ATTENED MEETING. WILL CONTIUNE TO FOLLOW WITH PATIENT UNTIL DISCHARGED
--- NOTE | 2016-04-06 18:38 | NUR ---
RESTING QUIETLY IN BED. GETTING BEDSIDE DIALYSIS.
--- NOTE | 2016-04-06 19:30 | NUR ---
PT IS RESTING IN BED WATCHING TV. ALERT AND ORIENTED X 4. DENIES PAIN OR DISCOMFORT. TATIANNA ARE INTACT TO RIGHT HIP. BRUISING NOTED. NO DRAINAGE NOTED. PT HAS A RESERVE LEFT ARM FOR A HISTORY OF A MASTECTOMY. SR'S ARE UP X 2 IN BED. CALL LIGHT AND BEDSIDE TABLE ARE WITHIN EASY REACH.
--- NOTE | 2016-04-06 21:37 | NUR ---
PT IS RESTING IN BED WATCHING TV. NO NEEDS VOICED.
[2016-04-06 21:42] VITALS: BP 127/68
--- NOTE | 2016-04-07 01:04 | NUR ---
RESTING QUIETLY IN BED WITH EYES CLOSED. RESPS ARE EVEN AND UNLABORED. NO ACUTE DISTRESS NOTED.
--- NOTE | 2016-04-07 02:18 | NUR ---
PT RESTING,EYES CLOSED. BED LOW. CL IN REACH.
--- NOTE | 2016-04-07 05:05 | NUR ---
PT RESTING IN BED WATCHING TV. NO NEEDS VOICED.
[2016-04-07 08:03] VITALS: BP 104/59
--- NOTE | 2016-04-07 12:18 | NUR ---
LAYING IN BED TALKING ON PHONE.
--- NOTE | 2016-04-07 17:50 | NUR ---
SITTING UP IN BED EATING SUPPER. DENIES NEEDS
--- NOTE | 2016-04-07 19:35 | NUR ---
PT IN BED WITH EYES OPEN, WATCHING TV. NO NEEDS MADE KNOWN AT THIS TIME. WATER AND CALL LIGHT IN REACH.
[2016-04-07 20:45] VITALS: BP 127/50
--- NOTE | 2016-04-07 21:35 | NUR ---
PT IN BED WITH EYES CLOSED AND CHEST RISING. RESPIRATIONS EVEN AND UNLABORED. EASILY AROUSED TO VERBAL STIMULI. NO CONCERNS NOTED AT THIS TIME. WATER AND CALL LIGHT IN REACH.
--- NOTE | 2016-04-07 23:53 | NUR ---
PT IN BED WITH EYES CLOSED AND CHEST RISING. RESPIRATIONS EVEN AND UNLABORED. NO SIGN/SYMPTOMS OF DISTRESS NOTED. WATER AND CALL LIGHT IN REACH.
--- NOTE | 2016-04-08 04:09 | NUR ---
PT IN BED WITH EYES CLOSED AND CHEST RISING. RESPIRATIONS EVEN AND UNLABORED. NO SIGN/SYMPTOMS OF DISTRESS NOTED. CALL LIGHT IN REACH.
[2016-04-08 05:54] LABS: BASOPHILS 0.3 % (0.0-2.0); EOSINOPHILS 7.1 % (0-7); HEMATOCRIT 33.8 % (36.0-48.0); HEMOGLOBIN 10.4 g/dL (12-16); IMMATURE GRANULOCYTES 0.9 % (0-5); LYMPHOCYTES 33.3 % (15-50); MCH 29.1 pg (26.0-34.0); MCHC 30.8 g/dL (31.0-37.0); MCV 94.4 fL (80.0-100.0); MEAN PLATELET VOLUME 9.1 fL (7.4-10.4); MONOCYTES 7.8 % (2-11); NEUTROPHILS 50.6 % (40-80); PLATELET COUNT 366 10x3/uL (130-400); RBC 3.58 10x6/uL (4.00-5.40); RDW 14.8 % (11.5-14.5); WBC 5.8 10x3/uL (4.8-10.8)
[2016-04-08 06:10] LABS: CARBON DIOXIDE 30.3 mmol/L (21.0-32.0); CREATININE - SERUM 0.9 mg/dL (0.6-1.3); POTASSIUM - SERUM 4.3 mmol/L (3.5-5.1)
--- NOTE | 2016-04-08 07:38 | NUR ---
PT RESTING IN BED WITH EYES OPEN CALL LIGHT IN REACH WILL MONITER
[2016-04-08 07:55] VITALS: BP 115/63
--- NOTE | 2016-04-08 09:47 | NUR ---
PATIENT DISCHARGING HOME TODAY. [facility] WILL PROVIDE NURSING, PT, OT. APPOINTMENTS : DR. PARKER 04/15/16 @ 3:00, DR. GÓMEZ 04/22/16 @ 11:00. PATIENT EDUCATION ON SIGNS AND SYMPTOMS OF INFECTION TO SURICAL SITE. PATIENT CHOICE FORM FOR HOME HEALTH AND [facility] FORM SIGNED, EXPLAINED AND FILED IN CHART. ORDERS HAVE BEEN FAXED AND CONFORMATION RECIEVED
--- NOTE | 2016-04-08 09:50 | NUR ---
RESTING IN BED WITH NURSE IN THE ROOM.
--- NOTE | 2016-04-08 10:44 | RHP ---
PATIENT: MIMI LAWRENCE MEDICAL RECORD: [id number] ACCOUNT: [id number] LOCATION:[id number] : 42 ADMISSION DATE: 03/29/16 REHABILITATION HISTORY AND PHYSICAL EXAMINATION POST ADMISSION PHYSICIAN EXAMINATION Post-admission Physical Examination and History and Physical DATE OF ADMISSION TO REHAB: 03/29/2016 ADMITTING DIAGNOSES: Right intertrochanteric hip fracture, status post open reduction and internal fixation and postoperative blood loss anemia. HISTORY OF PRESENT ILLNESS: The patient is a 76-year-old female patient admitted to rehab for right intertrochanteric hip fracture with ORIF and postoperative blood loss anemia. She apparently tripped while coming out of a grocery store. She fell on her right hip. She presented to the Emergency Department with right hip pain. She had an ORIF on March 26. Her H&H on admit was 12 and 37; on March 28, it was 8.2 and 25.6, and on March 29, it was 8.4 and 26.1, her pulse ox has been running in the low 90s since her H&H have decreased. She was completely independent with ADLs and mobility at home and is currently requiring minimal to max assist with ADLs and mobility using a rolling walker with pain to her right lower extremity and unable to bear much weight. At this time, she definitely needs inpatient rehab to get back to her prior level of functioning. COMORBIDITIES: Include peripheral vascular disease, coronary artery disease, hypertension, diabetes, history of tobacco use, thyroid disease, history of breast cancer. PAST MEDICAL HISTORY: Significant for cataracts, diabetes, thyroid problems, coronary artery disease, peripheral vascular disease and breast cancer. PAST SURGICAL HISTORY: Includes gallbladder surgery, cataracts, appendectomy, tonsillectomy, adenoidectomy, hysterectomy, bilateral mastectomy, cardiac stents times 6 and now ORIF of her hip. ALLERGIES: SULFA DRUGS, MORPHINE, NIACIN AND MEPERIDINE. CURRENT MEDICATIONS: Include Januvia 50 mg daily. She is on Effient 10 mg daily, metformin 500 mg daily, lisinopril 20 mg daily, Synthroid 25 mcg daily, omega 3 daily. She is on Floranex 460 mg daily, enoxaparin 40 mg subQ daily, vitamin D of 1000 units daily, tramadol 50 mg b.i.d. p.r.n., Percocet 10/325 as needed for severe pain, Nitrostat p.r.n., metoprolol XL 25 mg b.i.d., isosorbide 30 mg b.i.d. She is on a low resistant sliding scale insulin with Humalog, Neurontin 300 mg t.i.d., Colace 100 mg b.i.d. and atorvastatin 40 mg at bedtime. HABITS: She does have a history of tobacco use. FAMILY HISTORY: Noncontributory. SOCIAL HISTORY: The patient hopes to return back home and get back to her prior level of functioning and be able to get around. REVIEW OF SYSTEMS: HISTORY AND PHYSICAL [id number] LAWRENCE,[facility] GENERAL: Does complain of weakness. HEENT: Denies cold, cough, or congestion. CARDIOVASCULAR: Denies chest pain. PHYSICAL EXAMINATION: VITAL SIGNS: Stable, afebrile. GENERAL: An elderly female in no acute distress, alert upon exam. HEENT: Normocephalic, atraumatic. Mucosa moist. NECK: Supple. No lymphadenopathy. LUNGS: Clear at this time. HEART: Regular rate and rhythm. ABDOMEN: Benign. EXTREMITIES: No clubbing, cyanosis or edema, consistent with hip surgery. NEUROLOGIC: Intact. LABORATORY DATA: White count 6.2, H&H of 8.6 and 26.2 and platelet count was noted to be 175. Her sodium is 137, potassium 3.7, BUN and creatinine 14 and 0.9, blood sugar was noted to be 171. ASSESSMENT: This is a 76-year-old female patient admitted to rehab with a working diagnosis of an open reduction and internal fixation of right hip and also noted postoperative anemia. The patient has potential to make improvement. We instituted the following multiple disciplinary therapies including to, but not limited to physical, occupational, respiratory, speech, nutritional services, prosthetics and orthotics. Given her complex condition and risk for more complications, rehabilitation services cannot be provided at a lower level of care such as a halfway facility. PLAN: 1. Admit to [facility] rehab for intensive inpatient therapy to include the following disciplines: A. Physical therapy to improve gait, all transfer skills and bed mobility to a modified independent level. B. Occupational therapy to improve activities of daily living to a modified independent level. C. Case management to assist with discharge planning and placement options. D. Nutrition to assist with nutritional needs. E. Rehabilitation nursing to assist in monitoring the patient's underlying medical condition and to assist with any type of bowel or bladder management. 2. The patient's current medication and medical care will be continued. 3. The patient will be placed on standard fall precautions. 4. The patient's estimated length of stay is approximately 7-10 days. 5. Discuss this patient during care team staff meeting this week. TRANSINT:[id number] Voice Confirmation ID: [id number] DOCUMENT ID: [id number] HISTORY AND PHYSICAL [id number] LAWRENCE,ANGELLA FRIED MD at 1044 CC: [id number] DICTATION DATE: 03/30/16 0846 BLADE BALANCER: 03/30/16 1021 ADM IN [address] [address] [place] [address]
--- NOTE | 2016-04-08 12:40 | NUR ---
PT DISCHARGED TO HOME WITH DAUGHTER VIA WHEELCHAIR PT DISCHARGE SUMMARY AND MEDS REVIEWED MEDS CALLED TO [facility] NO QUESTIONS NO PROBLEMS
== END 2016-04-08 13:18 | disposition home health service (06) | DRG 561 ==
LOC: D.REHAB 10:13
PROVIDERS: ADMIT Emergency Medicine
DX: S72.141D Displaced intertrochanteric fracture of right femur, subsequent encounter for closed fracture with routine healing (principal); I25.10 Atherosclerotic heart disease of native coronary artery without angina pectoris; I10 Essential (primary) hypertension; Z87.891 Personal history of nicotine dependence; D64.9 Anemia, unspecified; E11.51 Type 2 diabetes mellitus with diabetic peripheral angiopathy without gangrene

== ENCOUNTER 2018-10-03 17:06 | Observation (INO) | payer MEDICARE, OTHER ==
[~2018-10-03] VITALS: Ht 162.6 cm; Wt 67.3 kg
--- NOTE | ~2018-10-03 | HEMODYNAMI ---
PATIENT:MIMI LAWRENCE MEDICAL RECORD: [id number] : 42 LOCATION:[facility] D.2119 ADMISSION DATE: 10/03/18 Generatedon:10/04/201814:24 Patient name: MIMI LAWRENCE Patient #: [id number] : 1940 Date of study: 10/04/2018 Page: Of Hemodynamic Procedure Report Patient Data Patient Demographics Procedure consent was obtained First Name: MIMI Gender: Female Last Name: MELINDA : 1940 Patient #: [id number] Age: 78 year(s) Race: SSN: [id number] Additional ID: [id number] Contact details Address: [address] [place] [address] RO[address] State: [place] City: [place] Zip code: [address] Past Medical History Allergies Allergen Reaction Date Comments Reported Other allergy 10/04/2018 sulfa Admission Admission Data Admission Date: 10/03/2018 Admission Time: 17:51 Room #: D.2119 Lab Results Lab Result Date: 10/04/2018 Lab Result Time: 5:36 Biochemistry Name Units Result Min Max BUN mg/dl 18 --(---*)-- 7 18 Creatinine mg/dl 0.8 --(-*--)-- 0.6 1.3 CBC Name Units Result Min Max Hematocrit % 38.8 *-(----)-- 42 54 Hemoglobin g/dl 13 -*(----)-- 13.5 17.5 Procedure Procedure Types Cath Procedure Diagnostic Procedure LHC LHC w/Coronaries Sedation Charges Moderate Sedation up to 30 minutes PCI Procedure Coronary Stent Coronary Stent Initial Procedure Description Procedure Date Procedure Date: 10/04/2018 Procedure Start Time: 13:52 Procedure End Time: 14:23 Procedure Staff Name Function Alex Jung MD Performing Physician Hernan Juan RT Monitor Nahid Mckoy RT Scrub Camille Tinoco RT Scrub Domitila Quinones RN Nurse Procedure Data Cath Procedure Fluoroscopy Diagnostic fluoroscopy Total fluoroscopy Time: 5.3 time: 5.3 min min Diagnostic fluoroscopy Total fluoroscopy dose: 498 dose: 498 mGy mGy Contrast Material Contrast Material Type Amount (ml) Isovue 300 100 Entry Location Entry Primary Successful Side Size Upsize 1 Upsize Entry Closure Cordova ccessful Closure Location (Fr) (Fr) 2 (Fr) Remarks Device Remarks Femoral Right 5 Fr 6 Fr 6 Fr Exoseal artery Mid-Length Short Estimated blood loss: 10 ml Diagnostic catheters Device Type Used For End Catheter Placement MULTIPACK JL 4.0 5Fr Procedure catheter MULTIPACK 3DRC 5Fr Procedure catheter MULTIPACK Pigtail 5 Fr Procedure catheter Procedure Complications No complications Procedure Medications Medication Administration Route Dosage Oxygen etCO2 Nasal cannula 2 l/min Lidocaine 2% added to field 20 Heparin Flush Bag added to field 2 bags (1000units/500ml NS) 0.9% NaCl I.V. 100 ml/hr Versed I.V. 1 mg Fentanyl I.V. 50 mcg Versed I.V. 1 mg Heparin Bolus I.V. 4000 units Integrilin (Bolus I.V. 6.2 ml 2mg/ml) Plavix P.O. 75 mg Hemodynamics Rest HGB: 13 (g/dl) Heart Rate: 77 (bpm) Pressure Samples Time Site Value (mmHg) Purpose Heart Use Rate(bpm) 14:04 LV 154/12,12 Snapshot 72 Gradients Valve Time Site Site Mean SEP/DFP Peak To Heart Use 1 2 (mmHg) (sec/min) Peak Rate (mmHg) (bpm) Aortic 14:04 LV AO 78 Snapshots Pre Cath Intra NCS Post Cath Vital Signs Time Heart Resp SPO2 etCO2 NIBP (mmHg) Rhythm Pain Sedation Rate (ipm) (%) (mmHg) Status Level (bpm) 13:42:15 81 12 96 0 171/91(133) NSR 0 (11) 10(A) , No pain 13:46:42 82 14 98 41.9 180/97(138) NSR 0 (11) 10(A) , No pain 13:51:08 85 13 96 17.9 159/133(145) NSR 0 (11) 10(A) , No pain 13:55:28 84 12 94 8.2 164/93(125) NSR 0 (11) 9(A) , No pain 13:59:50 69 11 96 0 148/80(118) NSR 0 (11) 9(A) , No pain 14:04:10 85 10 96 0 146/76(116) NSR 0 (11) 9(A) , No pain 14:08:26 76 10 97 28.4 138/71(105) NSR 0 (11) 9(A) , No pain 14:12:42 81 10 97 21.7 132/66(112) NSR 0 (11) 9(A) , No pain 14:16:57 80 12 98 0 140/84(121) NSR 0 (11) 10(A) , No pain 14:21:56 78 10 98 0 Measuring NSR 0 (11) 9(A) , No pain 14:22:02 79 10 98 0 153/74(118) NSR 0 (11) 9(A) , No pain Medications Time Medication Route Dose Verified Delivered Reason Notes Effectiveness by by 13:48:04 Oxygen etCO2 2 Alex Ramesh used for Nasal l/min St Juancho Quinones RN procedure cannula 13:48:12 Lidocaine 2% added 20ml Alex Johnson for local to vial [facility] anesthetic field MD CRUZ 13:48:19 Heparin Flush added 2 Alex Armendarizory used for Bag to bags [facility] procedure (1000units/500ml field MD CRUZ NS) 13:48:28 0.9% NaCl I.V. 100 Alex Raemsh Per physician ml/hr St Juancho Quinones RN, MD 13:48:42 Versed I.V. 1 mg Alex Ramesh for sedation St Juancho Quinones RN, MD 13:48:48 Fentanyl I.V. 50 Alex Ramesh for sedation mcg St Juancho Quinones RN, MD 13:58:01 Versed I.V. 1 mg Alex Ramesh for sedation St Juancho Quinones RN, MD 14:08:06 Heparin Bolus I.V. 4000 Alex Ramesh for verif ied units St Juancho Quinones RN anticoagulation with dr MD brown 14:09:27 Integrilin I.V. 6.2 Alex Ramesh for waste d (Bolus 2mg/ml) ml St Juancho Quinones RN antiplatelet 3.8 ml therapy of vial 14:18:31 Plavix P.O. 75 mg [address] for St Juancho Quinones RN antiplatelet therapy Procedure Log Time Note 13:10:31 Nahid Mckoy RT(R) (CV) sent for patient. Start room use. 13:21:13 Informed consent obtained and on chart 13:27:16 Patient allergic to Other allergysulfa 13:29:06 ACC Patient presents with Unstable Angina CCS Anginal Class 4--Inability to carry out any physical activity w/o angina. Angina may occur at rest. 13:29:44 ACCPatient has been prescribed/administered the following anti-anginal medication within the last 2 weeks: Beta Art, KHUSHI-Inhibitor 13:29:48 Procedure Status Elective Heart Cath (OP). 13:40:48 Time tracking: Regular hours (M-F 7:00 - 5:00) 13:40:52 Plan of Care:Hemodynamics will remain stable., Cardiac rhythm will remain stable., Comfort level will be maintained., Respiratory function will remain adequate., Patient/ family verbilizes understanding of procedure., Procedure tolerated without complication., Recovers from procedure without complications.. 13:40:55 Patient received from Pre/Post Procedure Room to CCL 1 Alert and oriented. Tansferred to table in Supine position. 13:40:56 Warm blankets applied, and harlan hugger turned on for patient comfort. 13:40:57 Correct patient and procedure confirmed by team. 13:40:57 ECG and BP/O2 sat monitors applied to patient. 13:40:58 Vital chart was started 13:40:59 Baseline sample Acquired. 13:41:01 Rhythm: sinus rhythm 13:41:03 Full Disclosure recording started 13:41:12 H&P Date Dictated: 10/03/2018 Within 30 days and on chart.. 13:41:14 Pre-procedure instructions explained to patient. 13:41:14 Pre-op teaching completed and patient verbalized understanding. 13:41:15 Family in waiting room. 13:41:28 Patient NPO since Midnight. 13:41:31 Is the patient allergic to Iodine/contrast media? No. 13:41:33 Is patient on blood thinner?Yes 13:41:36 ACC The patient was administered the following blood thiners within the last 24 hours: None 13:41:42 Patient diabetic? Yes. 13:41:48 ACC The patient was administered the following blood thiners within the last 24 hours: ACCAspirin, ACCPlavix 13:41:53 If diabetic: On Metformin? No 13:41:59 Previous problem with sedation/anesthesia? No ? 13:42:00 Snore? No 13:42:06 Sleep apnea? No 13:42:07 Deviated septum? No 13:42:08 Opens mouth fully? Yes 13:42:08 Sticks out tongue? Yes 13:42:10 Airway obstruction? Yes asthma 13:42:22 Dentures? No ? 13:42:29 Pre procedure: right dorsailis pedis pulse 1+ Palpable, but thready & weak; easily obliterated 13:42:30 Patient pain scale 0/10 ?. 13:42:39 IV patent on arrival in right forearm with 0.9% NaCl at [facility]. 13:43:52 Lab Result : BUN 18 mg/dl 13:43:52 Lab Result : Creatinine 0.8 mg/dl 13:43:53 Lab Result : Hemoglobin 13 g/dl 13:43:53 Lab Result : Hematocrit 38.8 % 13:43:55 Lab results completed and on chart. 13:43:57 Right groin area was prepped with chlora-prep and draped in sterile fashion 13:43:58 Alarms reviewed by R. N. 13:43:58 Sharps counted by scrub and verified by R.N. 13:44:01 Use device set Femoral Dx 13:44:02 ACIST Syringe (44543) opened to sterile field. 13:44:02 Bag Decanter (2002S) opened to sterile field. 13:44:03 Medline Cath Pack ([id number]) opened to sterile field. 13:44:03 ACIST Hand Control (12155) opened to sterile field. 13:44:04 ACIST Manifold (24984) opened to sterile field. 13:44:05 Tegaderm 4 x 4 (1626W) opened to sterile field. 13:44:06 EMERALD Guide Wire (001-428) opened to sterile field. 13:44:07 SHEATH 5FR [place] (TDI299) opened to sterile field. 13:44:08 DIAGNOSTIC Multipack 5Fr catheter set ([id number]) opened to sterile field. 13:44:17 Physician arrived 13:44:17 --------ALL STOP TIME OUT------ 13:44:17 Final Timeout: patient, procedure, and site verified with staff and physician. All members of the team are in agreement. 13:44:41 Right groin site verified by team. 13:44:45 Fire Safety Assessment: A--An alcohol-based skin anteseptic being used preoperatively., C--Open oxygen or nitrous oxide is being used., D--An ESU, laser, or fiber-optic light is being used. 13:45:03 Physical assessment completed. ASA score P 2 - A patient with mild systemic disease as per Alex Jung MD. 13:45:14 2) 60-89 Mildly reduced kidney function, and other findings (as for stage 1) point to kidney disease. 13:48:04 Oxygen 2 l/min etCO2 Nasal cannula was administered by Domitila Quinones RN; used for procedure; 13:48:12 Lidocaine 2% 20ml vial added to field was administered by Alex Jung MD; for local anesthetic; 13:48:19 Heparin Flush Bag (1000units/500ml NS) 2 bags added to field was administered by Alex Jung MD; used for procedure; 13:48:28 0.9% NaCl 100 ml/hr I.V. was administered by oDmitila Quinones RN; Per physician; 13:48:42 Versed 1 mg I.V. was administered by Domitila Quinones RN; for sedation; 13:48:48 Fentanyl 50 mcg I.V. was administered by Domitila Quinones RN; for sedation; 13:49:38 Maximum allowable contrast dose (3.7 X eGFR X 0.75)205 ml. 13:49:40 Sedation plan: IV Moderate Sedation Medication:Versed, Fentanyl 13:52:26 Procedure started. 13:52:29 Local anesthetic to right femoral artery with Lidocaine 2% by Alex Jung MD.INITIAL ACCESS ONLY 13:54:20 A 5 Fr sheath was inserted into the Right Femoral artery 13:58:01 Versed 1 mg I.V. was administered by Domitila Quinones RN; for sedation; 13:58:05 A MULTIPACK JL 4.0 5Fr catheter was advanced over the wire and used for Procedure. 13:58:34 Zero performed for pressure channel P1 13:58:40 Zero performed for pressure channel P1 13:59:06 Zero performed for pressure channel P1 14:00:22 LCA angiography performed. 14:02:08 Catheter exchanged over wire. 14:02:13 A MULTIPACK 3DRC 5Fr catheter was advanced over the wire and used for Procedure. 14:02:54 RCA angiography performed. 14:03:02 Catheter exchanged over wire. 14:03:08 A MULTIPACK Pigtail 5 Fr catheter was advanced over the wire and used for Procedure. 14:04:34 LV gram done using ROSA 14:04:36 Injector settings: Ml/sec: 10, Volume: 20, 14:04:40 LV hemodynamics recorded. 14:04:43 EF : 55 % 14:05:17 Catheter removed. 14:05:39 WHISPER 300cm guide wire ([id number]) opened to sterile field. 14:05:40 SHEATH 6FR Destination (RSR01) opened to sterile field. 14:05:41 INFLATOR Merit BasixCompak (MB9940) opened to sterile field. 14:05:41 SHEATH 6FR [place] (GKF222) opened to sterile field. 14:05:59 Sheath upsized to a 6 Fr Mid-Length. 14:06:26 ACCDominant side:Co-Dominant 14:07:28 GUIDE 6FR XBLAD 3.5 catheter ([id number]) opened to sterile field. 14:07:48 6 Fr xblad 3.5 guide catheter was inserted over the wire 14:08:06 Heparin Bolus 4000 units I.V. was administered by Domitila Quinones RN; for anticoagulation; verified with dr brown 14:09:27 Integrilin (Bolus 2mg/ml) 6.2 ml I.V. was administered by Domitila Quinones RN; for antiplatelet therapy; wasted 3.8 ml of vial 14:10:00 whisper wire advanced. 14:11:06 Wire advanced across lesion. 14:11:49 ACC Pre-intervention LUCY Flow is 3. 14:11:57 Pre PCI Site: [place] mCirc has 90% stenosis. 14:13:47 Place stent Inflation Number: 1 A COBRA RX 2.5 X 8 Stent was prepped and advanced across the Mid CX . The stent was deployed at 14 EVE for 0:30 (min:sec) . 14:13:56 ACC Post-intervention LUCY Flow is 3. 14:14:02 Post PCI Site: [place] mCirc has 0% stenosis. 14:14:21 Stent catheter was removed intact over wire. 14:14:22 Wire removed. 14:14:22 Guide catheter removed. 14:14:30 EXOSEAL 6Fr (EX600) opened to sterile field. 14:14:49 ACT drawn and resulted at 341 seconds. (normal therapeutic range 180-240 seconds). 14:16:15 Sheath upsized to a 6 Fr Short. 14:16:22 Sheath removed intact; hemostasis achieved with Exoseal to the Right Femoral artery. 14:16:25 Procedure ended.(Physican Out) 14:18:31 Plavix 75 mg P.O. was administered by Domitila Quinones RN; for antiplatelet therapy; 14:18:55 Fluoroscopy time 05.30 minutes. 14:19:00 Fluoroscopy dose: 498 mGy 14:19:00 Flurop Dose total: 498 14:19:07 Dose Area Product 43467 mGy/cm. 14:19:21 Contrast amount:Isovue 300 100ml. 14:19:23 Maximum allowable dose exceeded? No. 14:19:24 Sharps counted by scrub and verified by R.N. 14:20:22 Insertion/operative site no bleeding no hematoma. 14:20:25 Post-op/insertion site Right Femoral artery dressed using a 4 x 4 and Tegaderm. 14:20:29 Post right femoral artery:stable, soft, clean and dry 14:20:53 Post Procedure Pulses reassessed and unchanged 14:20:56 Post-procedure physical assessment completed. ASA score P 2 - A patient with mild systemic disease as per Alex Jung MD. 14:20:59 Post procedure rhythm: unchanged. 14:21:08 Estimated blood loss: 10 ml 14:21:09 Post procedure instruction explained to patient.Patient verbalizes understanding. 14:21:10 Patient needs reinforcement of post procedure teaching. 14:21:29 Procedure type changed to Cath procedure, Diagnostic procedure, LHC, LHC w/Coronaries, Sedation Charges, Moderate Sedation up to 30 minutes, PCI procedure, Coronary Stent, Coronary Stent Initial 14:23:15 Procedure and supply charges have been captured, reviewed, submitted and are correct. 14:23:17 Procedure Complication : No complications 14:23:18 Vital chart was stopped 14:23:19 See physician's report for complete and final results. 14:23:20 Report given to PCU. 14:23:22 Patient transfered to PCU with Stretcher. 14:23:28 Procedure ended. 14:23:28 Full Disclosure recording stopped 14:23:36 ACC-PCI Only Patient was given prescriptions, or instructed by Alex Jung MD to start/continue the following medications upon discharge: Aspirin, Plavix 14:23:38 End room use (Document Last) Intervention Summary Intervention Notes Time ActionType Lesion and Equipment Action# Pressure Duration Attributes Used 14:13:47 Place stent Mid CX COBRA RX 1 14 00:30 2.5 X 8 Stent Device Usage Item Name Manufacture Quantity Catalog Hospital Part Current Minimal Lot# / Number Charge Number Stock Stock Serial# Code ACIST Syringe Acist 1 95661 123904 457656 448595 20 (86740) Medical Systems Inc Bag Decanter Microtek 1 2001S 776270 43937 635252 5 (2001S) Medical Inc. Medline Cath Medline 1 [id number] 751473 24461 446238 5 Pack ([id number]) ACIST Hand Acist 1 83336 428188 515288 125798 5 Control Medical (98157) Systems Inc ACIST Manifold Acist 1 78137 854260 478616 402307 5 (97041) Medical Systems Inc Tegaderm 4 x 4 3M 1 1626W 031421 249944 062187 5 (1626W) EMERALD Guide Cardinal 1 502-455 568725 630111 800503 5 Wire (502-455) Health SHEATH 5FR Terumo 1 NVQ412 896688 426957 905285 5 [place] (ZID671) DIAGNOSTIC Cardinal 1 EI0042 655510 54430 853381 30 Multipack 5Fr Health catheter set (QB5771) MULTIPACK JL Cardinal 1 848907 5 4.0 5Fr Health catheter MULTIPACK 3DRC Cardinal 1 634768 5 5Fr catheter Health MULTIPACK Cardinal 1 395064 5 Pigtail 5 Fr Health catheter WHISPER 300cm Saavedra 1 [id number] 879388 034644 720303 5 guide wire Vascular ([id number]) SHEATH 6FR Terumo 1 RSR01 388507 13301 371466 5 Destination (RSR01) INFLATOR Merit Merit 1 EI4509 632017 910349 275521 15 BasixCompak Medical (UX2775) SHEATH 6FR Terumo 1 HSM716 644791 278326 901700 40 [place] (URF220) GUIDE 6FR Cardinal 1 [id number] 654176 561119 930206 10 XBLAD 3.5 Health catheter (67490396) COBRA RX 2.5 X Celonova 1 644644 [id number] [id number] 5 [id number] 8 stent Biosciences () EXOSEAL 6Fr Cardinal 1 EX600 808225 071247 212981 10 (EX600) Health Signature Audit [place] Stage Time Signature Unsigned Intra-Procedure 10/04/2018 Hernan Juan 2:23:59 PM RT(R) Signatures Performing Physician : Signature : Alex Jung MD Date : Time : Monitor : Hernan Juan RT Signature : Date : Time : Nurse : Domitila Quinones RN Signature : Date : Time : [place] [address] [place] [address]
[~2018-10-03 17:06] MED LIST changes: +COLACE100 MG PO; +FLORAJEN3 CAPS460 MG PO; +GLUCOPHAGE500 MG PO; +HUMALOG 30100 UNITS/ SC; +JANUVIA50 MG PO; +LOVENOX40 MG/0.4 SC; +OXYCODONE HCL5 MG PO
[2018-10-03] MEDS ORDERED: LYRICA50 MG PO (17:23)
[2018-10-03] MEDS ORDERED: ASPIRIN81 MG PO (17:24)
[2018-10-03 17:26] VITALS: BP 190/86
[2018-10-03 17:43] VITALS: BP 173/89
[2018-10-03 17:46] LABS: BASOPHILS 0.2 % (0-2); EOSINOPHILS 6.8 % (0-7); IMMATURE GRANULOCYTES 0.5 % (0-5); LYMPHOCYTES 32.4 % (15-50); MCH 29.6 pg (26.0-34.0); MCHC 33.3 g/dL (31.0-37.0); MCV 88.8 fL (80.0-100.0); MEAN PLATELET VOLUME 9.4 fL (7.4-10.4); NEUTROPHILS 51.1 % (40-80); RBC 4.73 10x6/uL (4.00-5.40); RDW 13.7 % (11.5-14.5); WBC 8.4 10x3/uL (4.8-10.8)
[2018-10-03 17:55] LABS: PLATELET COUNT 194 10x3/uL (130-400)
--- NOTE | 2018-10-03 18:02 | NUR ---
FSBS= 120 MG/DL
[2018-10-03 18:06] VITALS: BP 146/75
[2018-10-03 18:06] LABS: ALBUMIN 3.8 g/dL (3.4-5.0); ALKALINE PHOSPHATASE 77 U/L (46-116); ALT (SGPT) 23 U/L (10-68); BILIRUBIN - TOTAL 0.43 mg/dL (0.2-1.3); CALC OSMOLALITY 288 mosm/kg (275-300); CALCIUM 9.4 mg/dL (8.5-10.1); CARBON DIOXIDE 28.5 mmol/L (21.0-32.0); CHLORIDE - SERUM 103 mmol/L (98-107); CREATININE - SERUM 1.2 mg/dL (0.6-1.3); GLUCOSE 149 mg/dL (74-106); POTASSIUM - SERUM 4.2 mmol/L (3.5-5.1); PROTEIN - SERUM 6.8 g/dL (6.4-8.2); SODIUM 140 mmol/L (136-145); UREA NITROGEN 31 mg/dL (7-18); eGFR NON AFRICAN AMERICAN 46 mL/min (90-120)
[2018-10-03 18:10] LABS: AMYLASE - SERUM 69 U/L (25-115); LIPASE 224 U/L (73-393)
[2018-10-03 18:21] LABS: TROPONIN-I < 0.017 ng/mL (0.000-0.060)
--- NOTE | 2018-10-03 18:25 | NUR ---
INQUIRED WITH DR ABBI BROWNLEE IF HE CONSULTED WITH CARDIOLOGY, HE SPOKE WITH DR CAMPBELL
--- NOTE | 2018-10-03 18:25 | NUR ---
REPORT CALLED TO KARINA GRAHAM BY SBAR FORMAT
--- NOTE | 2018-10-03 18:30 | NUR ---
TO ROOM #1730 [facility]
[2018-10-03 18:40] VITALS: BP 137/71
[2018-10-03 18:49] LABS: CKMB 1.5 U/L (0.0-3.6); CREATINE KINASE 66 UL (21-215)
[2018-10-03 18:54] LABS: TROPONIN-I < 0.017 ng/mL (0.000-0.060)
[2018-10-03 20:00] VITALS: BP 162/78
[2018-10-04] VITALS (9 sets, daily range): BP systolic 138–180; BP diastolic 72–88; Ht 162.6 cm; Wt 67.3 kg
[2018-10-04 00:57] LABS: CKMB 0.5 U/L (0.0-3.6); CREATINE KINASE 25 UL (21-215); TROPONIN-I 0.021 ng/mL (0.000-0.060)
[2018-10-04 06:53] LABS: CKMB 0.9 U/L (0.0-3.6); CREATINE KINASE 38 UL (21-215)
[2018-10-04 06:54] LABS: TROPONIN-I < 0.017 ng/mL (0.000-0.060)
[2018-10-04 08:20] LABS: BASOPHILS 0.3 % (0-2); EOSINOPHILS 7.3 % (0-7); HEMATOCRIT 38.8 % (36.0-48.0); IMMATURE GRANULOCYTES 0.4 % (0-5); LYMPHOCYTES 19.7 % (15-50); MCH 29.9 pg (26.0-34.0); MCHC 33.5 g/dL (31.0-37.0); MCV 89.2 fL (80.0-100.0); MONOCYTES 8.9 % (2-11); NEUTROPHILS 63.4 % (40-80); PLATELET COUNT 192 10x3/uL (130-400); RBC 4.35 10x6/uL (4.00-5.40); RDW 13.7 % (11.5-14.5); WBC 7.1 10x3/uL (4.8-10.8)
[2018-10-04 08:29] LABS: ANION GAP 13.6 mmol/L (8-16); CALCIUM 7.5 mg/dL (8.5-10.1); MAGNESIUM - SERUM 1.4 mg/dL (1.8-2.4); POTASSIUM - SERUM 3.6 mmol/L (3.5-5.1)
[2018-10-04 08:37] LABS: CREATININE - SERUM 0.8 mg/dL (0.6-1.3)
[2018-10-04] MEDS ORDERED: PLAVIX75 MG PO (15:49)
--- NOTE | 2018-10-04 19:50 | NUR ---
DRSG TO GROIN DRY AND INTACT PT AMBLITORY WITH GOOD BALANCE AND NO PAIN. LCTA SKIN WARM AND DRY IV REMOVED AT THIS TIME CATH INTACT AND I ESCORTED TO VEHICLE AFTER GOING OVER DC INSTRUCTIONS WITH PT
--- NOTE | 2018-10-05 06:33 | MORECARE ---
CASE MANAGEMENT DISCHARGE SUMMARY PATIENT: MIMI LAWRENCE UNIT: [id number] ADM DATE: 10/03/18 AGE: 78 : 41 SEX: F ROOM/BED: D.2677 AUTHOR: SONDRA MA PHYSICIAN: REFERRING PHYSICIAN: RAF CABA MD DATE OF SERVICE: 10/05/18 Discharge Plan Patient Name: MIMI LAWRENCE [facility] [facility] 1940 Planned Disposition: Home Anticipated Discharge Date: 10/04/18 Discharge Date: 10/04/2018 Expected LOS: 1 Initial Reviewer: [email or web address] Initial Review Date: 10/05/2018 Generated: 10/05/18 7:33 am Patient Name: MIMI LAWRENCE Page [id number] at 0633 All edits/amendments must be made on the electronic document DICTATION DATE: 10/05/18632 OIL WELL CABLE TOOL OPERATOR: ELIZABETH 10/05/1833 RPT#: [id number] DC DATE:10/04/18 STATUS: DIS IN [facility] [address] [place] [address] END OF REPORT
--- NOTE | 2018-10-07 09:24 | OP ---
PATIENT NAME: MIMI RAI MEDICAL RECORD: [id number] :42 LOCATION:D.M2 D.2119 ADMISSION DATE:10/03/18 SURGEON: CLAIRE CAMPBELL MD DATE OF OPERATION: 10/04/2018 PROCEDURE: Left heart catheterization, selective coronary angiography, right femoral artery approach. CATHETERS: A 5-Slovenian sheath, 5/4 left and right Afsaneh, 5/4 pig. The procedure was well tolerated. The patient returned to the rai. Sheath removed. ExoSeal device placed. FINDINGS: Left ventriculography in 30-degree ROSA view: Normal wall motion and normal systolic function. CORONARY ANATOMY: LEFT MAIN: Left main is free of disease. LAD: LAD is free of disease in the diagonal system. CIRCUMFLEX: Area of previous stenting is widely patent. There is end stent stenosis of approximately 80%, very discrete. RIGHT CORONARY ARTERY: Patent stents. Luminal irregularities. IMPRESSION: Culprit artery obviously circ. PLAN: Intervention momentarily. DESCRIPTION OF PROCEDURE: A 5-Slovenian sheath was exchanged for a long 6-Slovenian sheath. XB LAD 3.5 catheter provided good guide catheter support followed by 300 cm Whisper wire was placed across the tightly occluded circ down this portion of the vessel. Stent deployed was a 2.5 x 8 Cobra stent up to 14 atmospheres for 45 seconds. Final angiography shows excellent resolution of an absent stenosis, no significant residual. LUCY flow was 3 throughout the procedure. Sheath was closed with ExoSeal device. Plavix was loaded previously. TRANSINT:[id number] Voice Confirmation ID: [id number] DOCUMENT ID: [id number] CLAIRE CAMPBELL MD at 0924 CC: [id number] DICTATION DATE: 10/04/18 1435 FIRE WATCHER: 10/04/18 1634 DIS IN 10/04/[address] [facility] [address] [place] [address]
--- NOTE | 2018-10-07 09:24 | CN ---
PATIENT NAME:MIMI LAWRENCE MEDICAL RECORD: [id number] : 42 LOCATION:Den D.2119 ADMIT DATE: 10/03/18 ACCOUNT: [id number] CONSULTING PHYSICIAN: CLAIRE CAMPBELL MD REFERRING PHYSICIAN: RAF CABA MD DATE OF CONSULTATION: 10/04/2018 HISTORY OF PRESENT ILLNESS: A 78-year-old female with known history of coronary artery disease, status post intervention. She has history of hypertension, hyperlipidemia, diabetes mellitus. Over the past 2-3 weeks, has been having accelerated angina class III, initially with exertion, most recently a couple episodes of rest symptomology including yesterday, relieved with nitroglycerin. We are asked to see her concerning her cardiovascular status. PAST MEDICAL HISTORY: Includes; 1. History of hypertension. 2. Hyperlipidemia. 3. Diabetes mellitus. 4. Coronary artery disease as described above. MEDICATIONS: Include Lipitor 40 every day, lisinopril 20 every day, metoprolol 25 every day, aspirin 81 every day, Neurontin 300 mg t.i.d., Lyrica 50 b.i.d., Synthroid 25 mcg every day, Janumet 50/500 every day. ALLERGIES: SULFA, NIACIN, MORPHINE, MEPERIDINE. SOCIAL HISTORY: Nonsmoker, nondrinker. Easily takes care of all her ADLs. Does try to exercise twice a week. REVIEW OF SYSTEMS: The patient reports easy bruising but reports no swollen glands. The patient reports no fever, no night sweats, no significant weight gain, no significant weight loss. No significant exercise tolerance. The patient reports no dry eyes, no irritation, no vision change. Patient reports no difficulty hearing and no ear pain. Patient reports no frequent nose bleeds or nose and sinus problems. Patient reports no arm pain on exertion. No shortness of breath while lying down. No history of heart murmur. Patient reports no cough, no wheezing or coughing up blood. Patient reports no abdominal pain, no vomiting. Normal appetite. No diarrhea and not vomiting blood. No nausea and no constipation. Patient reports no incontinence. No difficulty urinating. No hematuria. No increased frequency. Patient reports no muscle aches. No weakness, no arthralgias, no back pain. No swelling of the extremities. Patient reports no abnormal mole, no jaundice, no rashes. Reports no loss of consciousness. No weakness and no numbness. No seizures, dizziness, or headaches. The patient reports no depression, no sleep disturbance, feeling safe in a relationship and no alcohol abuse. Patient reports on fatigue. Reports no runny nose or sinus pressure. No itching, no hives, and no frequent sneezing. PHYSICAL EXAMINATION: GENERAL: A pleasant female, appears younger than stated age, in no acute distress. VITAL SIGNS: Blood pressure 166/77, pulse 94 and regular. HEENT: Normocephalic, atraumatic. NECK: No bruits noted. HEART: Regular. Questionable S4 gallop. CONSULT REPORT [id number] MIMI LAWRENCE LUNGS: Good air excursion. ABDOMEN: Soft, nontender. EXTREMITIES: Pulse 2+. No edema. NEUROLOGIC: Grossly intact. IMPRESSION: Class III angina with rest symptomology at this point, 5 years out from last intervention. PLAN: For angiography, intervention based on the above. TRANSINT:[id number] Voice Confirmation ID: [id number] DOCUMENT ID: [id number] CLAIRE CAMPBELL MD at 0924 CC: [id number] DICTATION DATE: 10/04/18 0849 [employer] FIELD AGENT: 10/04/18 0934 DIS IN 10/04/18 [id number] [place] [address]
== END 2018-10-04 19:51 | disposition home or self-care (01) ==
LOC: D.ER 17:06 → D.M2 17:51 → OBSVTIME 17:55 → D.M2 10-04 19:51
PROVIDERS: Emergency Medicine; ADMIT Internal Medicine Nephrology; ATTEND Internal Medicine Nephrology
DX: I25.119 Atherosclerotic heart disease of native coronary artery with unspecified angina pectoris (principal); E78.5 Hyperlipidemia, unspecified; E11.9 Type 2 diabetes mellitus without complications; I25.110 Atherosclerotic heart disease of native coronary artery with unstable angina pectoris; E87.0 Hyperosmolality and hypernatremia; E83.42 Hypomagnesemia

== ENCOUNTER → 2018-12-17 17:27 | Outpatient (CLI) | payer MEDICARE, OTHER ==
[2018-10-04 12:53] VITALS: BMI 25.4
[~2018-12-17 17:27] MED LIST changes: +ASPIRIN81 MG PO; +LYRICA50 MG PO
[2018-12-17 19:12] LABS: CHOL - HDL RATIO 2.9 ratio (2.3-4.1); LDL-HDL RATIO 1.4 ratio (1.5-3.5)
== END | disposition home or self-care (01) ==
LOC: D.LABREF 17:27
PROVIDERS: ATTEND Internal Medicine Interventional Cardiology
DX: I25.10 Atherosclerotic heart disease of native coronary artery without angina pectoris (principal)